=== PATIENT | female | born 1950 | race Caucasian/White ===

== ENCOUNTER → 2017-01-31 | Outpatient (CLI) | payer MEDICARE ==
--- NOTE | ~2017-01-31 | MY11 ---
[facility] A Service of [facility] RADIOLOGY TEXT RESULTS PATIENT: HELENA ADORNO LOCATION: [facility] : 52 UNIT #: [id number] AGE: [address]: Sara Morton MD SEX: F ORDER DR: [id number] [place] [id number] O MR#: [id number] Acc #: [id number] NAME: HELENA ADORNO : 1950 SEX: F STUDY DATE/TIME: 01/31/2017 13:56 UNIT: [facility] ROOM: STUDY DESCRIPTION: MY Mammogram Screening [facility] Attending Physician: Sara Morton M.D. Referring Physician: Sara Morton M.D. Ordering Physician: Sara Morton M.D. Primary Care Physician: Sara Morton M.D. MEDICAL IMAGING REPORT This report is preliminary unless electronic signature is present. EXAM Digital screening mammogram, 01/31/2017, [facility]. HISTORY 66-year-old woman no risk elevation. Annual screen. COMPARISON 05/22/2004, 10/12/2006, 08/11/2012, 08/08/2015 TECHNIQUE Digital imaging of each breast was completed utilizing screening protocol. Review includes FDA-approved CAD device. FINDINGS Breast parenchyma is heterogeneously dense and there is continuing parenchymal dominance noted in the left breast. Subareolar duct prominence bilaterally is stable. I see no interval occurring mass. There are a few benign calcifications noted inferior left breast with no suspicious microcalcifications and no architectural deformity. IMPRESSION Stable benign mammogram with benign dominance left breast. Annual screening recommended. Patients over the age of 40 are entered into a reminder system with target due date for the next mammogram. A result letter will also be sent to the patient. BIRADS: 2 Benign finding. [facility] A Service of [facility] RADIOLOGY TEXT RESULTS PATIENT: HELENA ADORNO LOCATION: [facility] : 52 UNIT #: [id number] AGE: [address]: Sara Morton MD SEX: F ORDER DR: Dictated by... Raul Fang M.D. THIS IS AN ELECTRONICALLY VERIFIED REPORT Raul Fang M.D. at 01/31/2017 4:00 PM BART/julius TD: 01/31/2017 15:48 JOB #: [id number] MEDICAL IMAGING REPORT Page 1 of 1
== END | disposition home or self-care (01) ==
LOC: SMAM 12:59
DX: Z12.31 Encounter for screening mammogram for malignant neoplasm of breast (principal)
CPT/HCPCS: G0202